=== PATIENT | female | born 1930 | race Caucasian/White ===

== ENCOUNTER 2016-06-01 14:36 | Observation (INO) | payer OTHER ==
[~2016-06-01] VITALS: Ht 175.3 cm; Wt 79.0 kg
[2016-06-01 15:30] LABS: BASOPHILS % 0.4 % (0.0-2.0); EOSINOPHILS % 0.9 % (0.0-5.0); HEMATOCRIT. 37.3 % (36.0-48.0); HEMOGLOBIN. 12.4 g/dL (12.0-16.0); LYMPHOCYTES % 39.3 % (20.0-50.0); MEAN CORPUSCULAR HEMOGLOBIN 29.5 pg (28.0-32.0); MEAN CORPUSCULAR HGB CONC 33.2 g/dL (31.0-37.0); MEAN CORPUSCULAR VOLUME 88.7 fL (81.0-99.0); MEAN PLATELET VOLUME 7.2 fl (7.4-10.4); MONOCYTES % 8.7 % (2.0-8.0); NEUTROPHILS % 50.7 % (40.0-76.0); PLATELET 229 x1000/uL (130-400); RED BLOOD CELL COUNT 4.21 mill/uL (4.2-5.4); RED CELL DISTRIBUTION WIDTH 13.6 % (11.6-14.6)
[2016-06-01 15:35] LABS: INR 1.1; PARTIAL THROMBOPLASTIN TIME 28.1 sec (24.0-34.0); PROTHROMBIN TIME 11.4 sec
[2016-06-01 15:36] LABS: ALBUMIN 3.7 g/dL (3.4-5.0); ANION GAP 13; CALCIUM 9.2 mg/dL (8.5-10.1); CARBON DIOXIDE 29 mEq/L (21-32); CHLORIDE 105 mEq/L (98-107); INDEX HEMOLYSI 1 (1-3); INDEX ICTERIC 1 (1-4); INDEX LIPEMIC 1 (1-3); LIPASE 125 IU/L (73-393); UREA NITROGEN BLOOD 11 mg/dL (7-21)
[2016-06-01 15:43] LABS: ALANINE AMINOTRANSFERASE 22 IU/L (13-61); TROPONIN I < 0.02 ng/mL (0.00-0.04); eGFR > 60 mL/min (>60)
[2016-06-01 18:27] VITALS: BP 153/98
[2016-06-01 18:29] VITALS: BP 153/98
[2016-06-01] MEDS ORDERED: AMLO10TA80 PO (18:53)
[2016-06-01] MEDS ORDERED: OXYB5TAB11 PO (18:53)
[2016-06-01] MEDS ORDERED: LOSA50TA20 PO (18:53)
[2016-06-01] MEDS ORDERED: PROT40 PO (18:53)
[2016-06-01] MEDS ORDERED: ACETAMINOPHEN 325MG TABLET PO PRN (19:30)
[2016-06-01] MEDS ORDERED: ALBUTEROL (0.083%) 2.5MG/3ML NEB HHN PRN (19:30)
[2016-06-01 20:00] VITALS: BP 145/94
[2016-06-01] MEDS ORDERED: ENOXAPARIN 40MG/0.4ML SYR SUBCUT SCH (20:00)
[2016-06-01] MEDS: METOPROLOL TARTRATE 25MG TABLET PO SCH (20:47)
[2016-06-01] MEDS ORDERED: TEMAZEPAM 15MG CAPSULE PO PRN (21:00)
[2016-06-01 23:53] LABS: CREATINE KINASE 108 IU/L (26-192); CREATINE KINASE MB FRACTION 2.5 ng/mL (0.5-3.6); INDEX HEMOLYSI 1 (1-3); TROPONIN I < 0.02 ng/mL (0.00-0.04)
[2016-06-02] VITALS: BP 148/80
[2016-06-02 04:00] VITALS: BP 121/80
[2016-06-02 06:02] LABS: BASOPHILS % 0.5 % (0.0-2.0); EOSINOPHILS % 2.3 % (0.0-5.0); HEMATOCRIT. 35.6 % (36.0-48.0); HEMOGLOBIN. 11.9 g/dL (12.0-16.0); LYMPHOCYTES % 50.1 % (20.0-50.0); MEAN CORPUSCULAR HEMOGLOBIN 29.9 pg (28.0-32.0); MEAN CORPUSCULAR HGB CONC 33.5 g/dL (31.0-37.0); MEAN CORPUSCULAR VOLUME 89.1 fL (81.0-99.0); MEAN PLATELET VOLUME 7.6 fl (7.4-10.4); MONOCYTES % 10.2 % (2.0-8.0); NEUTROPHILS % 36.9 % (40.0-76.0); PLATELET 208 x1000/uL (130-400); RED CELL DISTRIBUTION WIDTH 13.9 % (11.6-14.6); WHITE BLOOD COUNT 5.9 x1000/uL (4.5-11.0)
[2016-06-02 06:11] LABS: ANION GAP 10; CALCIUM 8.9 mg/dL (8.5-10.1); CARBON DIOXIDE 31 mEq/L (21-32); CHLORIDE 106 mEq/L (98-107); CREATINE KINASE 102 IU/L (26-192); CREATINE KINASE MB FRACTION 2.4 ng/mL (0.5-3.6); HDL CHOLESTEROL 87 mg/dL (40-59); INDEX HEMOLYSI 1 (1-3); INDEX ICTERIC 1 (1-4); INDEX LIPEMIC 1 (1-3); LDL CHOLESTEROL 83 mg/dL (5-100); TRIGLYCERIDE 69 mg/dL (0-150); TROPONIN I < 0.02 ng/mL (0.00-0.04); UREA NITROGEN BLOOD 12 mg/dL (7-21); eGFR > 60 mL/min (>60)
[2016-06-02] MEDS ORDERED: PANTOPRAZOLE 40MG DR TABLET PO SCH (06:45)
[2016-06-02 08:00] VITALS: BP 161/79
[2016-06-02] MEDS: METOPROLOL TARTRATE 25MG TABLET PO SCH (08:53)
[2016-06-02 08:57] LABS: BG BASE EXCESS 3.4 mmol/L (-2.0-2.0); BG CARBOXYHEMOGLOBIN 0.8 % (0.5-1.5); BG DEOXYHEMOGLOBIN 3.5 % (0.0-5.0); BG FRACTION INSPIRED OXYGEN 21; BG METHEMOGLOBIN 0.2 % (0.0-1.5); BG OXYGEN SATURATION 96.5 % (92.0-98.5); BG OXYHEMOGLOBIN 95.5 % (94.0-97.0); BG PCO2 42.5 mmHg (35.0-45.0); BG PH 7.436 (7.350-7.450); BG PO2 85.4 mmHg (75.0-100.0); BG SAMPLE SITE RIGHT BRACHIAL; BG VENT MODE ROOM AIR
[2016-06-02] MEDS ORDERED: REGADENOSON 0.4 MG/5 ML IV NR (09:00)
[2016-06-02] MEDS ORDERED: ASPIRIN 325MG EC TABLET PO SCH (09:00)
[2016-06-02] MEDS ORDERED: OXYBUTYNIN CHLORIDE 5MG TABLET PO SCH (09:00)
[2016-06-02] MEDS ORDERED: LOSARTAN POTASSIUM 50 MG TABLET PO SCH ×2 (09:00)
[2016-06-02] MEDS ORDERED: AMLODIPINE 5MG TABLET PO SCH (09:00)
[2016-06-02] MEDS ORDERED: REGADENOSON 0.4 MG/5 ML IV ONE (10:33)
[2016-06-02] MEDS ORDERED: IOHEXOL-350 100 ML BOTTLE ONE (13:14)
[2016-06-02] MEDS ORDERED: SODIUM CHLORIDE 0.9% 10ML VIAL ONE (13:14)
[2016-06-02 14:30] VITALS: BP 132/70
[2016-06-02 16:56] LABS: CREATINE KINASE 136 IU/L (26-192); INDEX HEMOLYSI 1 (1-3); TROPONIN I < 0.02 ng/mL (0.00-0.04)
== END 2016-06-02 16:50 | disposition home or self-care (01) ==
LOC: ER 14:53 → 5WST 16:10 → INTOOBSV 16:10
PROVIDERS: ADMIT Internal Medicine; ATTEND Internal Medicine
DX: R07.89 Other chest pain (principal); I10 Essential (primary) hypertension; M54.9 Dorsalgia, unspecified; G89.29 Other chronic pain; M54.10 Radiculopathy, site unspecified; I25.10 Atherosclerotic heart disease of native coronary artery without angina pectoris; K21.9 Gastro-esophageal reflux disease without esophagitis; M19.90 Unspecified osteoarthritis, unspecified site; R32 Unspecified urinary incontinence; Z86.74 Personal history of sudden cardiac arrest; Z90.710 Acquired absence of both cervix and uterus
CPT/HCPCS: 36415; 36600; 71010; 71275; 78452; 80048; 80053; 80061; 82375; 82550; 82553; 82805; 83690; 84484; 85025; 85610; 85730; 93005; 93017; 93306; 93970; 96372; 99285; A4216; A9500; G0378; J1650; J2785; J7040; Q9967